=== PATIENT | female | born 1970 | race Caucasian/White ===

== ENCOUNTER → 2020-02-16 | Outpatient (CLI) | payer OTHER ==
[~2020-02-16] MED LIST: LEVO-T100 MCG PO; SARAFEM20 MG PO
== END ==
LOC: LAB 11:39
PROVIDERS: ATTEND Nurse Practitioner
DX: R05 Cough (principal); R53.83 Other fatigue; Z20.828 Contact with and (suspected) exposure to other viral communicable diseases